=== PATIENT | female | born 2000 | race Two or more races ===

== ENCOUNTER 2024-11-02 19:51 | Emergency (ER) | payer OTHER ==
[~2024-11-02] VITALS: Ht 162.6 cm; Wt 68.0 kg
== END 2024-11-02 22:47 | disposition home or self-care (01) ==
LOC: ER 19:51
DX: S09.8XXA Other specified injuries of head, initial encounter (principal); V49.88XA Car occupant (driver) (passenger) injured in other specified transport accidents, initial encounter; Y93.89 Activity, other specified; Y92.89 Other specified places as the place of occurrence of the external cause; Y99.8 Other external cause status; M62.830 Muscle spasm of back; Z88.0 Allergy status to penicillin